=== PATIENT | female | born 1995 | race Caucasian/White ===

== ENCOUNTER → 2021-05-30 | Outpatient (REF) | payer OTHER | LOC: M PLALAB 13:43 | PROVIDERS: ATTEND Advanced Practice Midwife | DX: Z01.419 Encounter for gynecological examination (general) (routine) without abnormal findings (principal); Z12.4 Encounter for screening for malignant neoplasm of cervix ==

== ENCOUNTER → 2021-05-31 | Outpatient (CLI) | payer OTHER | LOC: M WHC 13:59 | PROVIDERS: ATTEND Advanced Practice Midwife | DX: N63.0 Unspecified lump in unspecified breast (principal) ==

== ENCOUNTER 2022-04-02 09:17 | Emergency (ER) | payer OTHER ==
[~2022-04-02] VITALS: Ht 172.7 cm; Wt 66.9 kg
[2022-04-02 10:25] LABS: BASO % 0.9 % (0.0-1.0); EOS # 0.1 10^3/uL (0.0-0.5); EOS % 2.1 % (0.0-3.0); HEMATOCRIT 37.9 % (36.0-47.0); HEMOGLOBIN 12.3 g/dl (12.0-15.5); LYMPH # 1.8 10^3/uL (1.5-5.0); LYMPH % 40.5 % (24.0-44.0); MEAN CORPUSCULAR HEMOGLOBIN 29.4 pg (27.0-33.0); MEAN CORPUSCULAR HGB CONC 32.5 g/dl (32.0-36.5); MEAN CORPUSCULAR VOLUME 90.7 fl (80.0-96.0); MONO # 0.2 10^3/uL (0.0-0.8); MONO % 5.2 % (2.0-8.0); NEUTROPHILS # 2.2 10^3/uL (1.5-8.5); NEUTROPHILS % 51.1 % (36.0-66.0); PLATELET COUNT, AUTOMATED 270 10^3/uL (150-450); RED BLOOD COUNT 4.18 10^6/uL (4.00-5.40); WHITE BLOOD COUNT 4.4 10^3/uL (4.0-10.0)
[2022-04-02 10:48] LABS: HCG, SERUM QUALITATIVE NEGATIVE (NEGATIVE)
[2022-04-02 10:56] LABS: BLOOD UREA NITROGEN 8 MG/DL (9-23); CALCIUM LEVEL 8.9 MG/DL (8.5-10.1); CARBON DIOXIDE LEVEL 28 MMOL/L (20-31); CHLORIDE LEVEL 105 MMOL/L (98-107); CREATININE FOR GFR 0.62 MG/DL (0.55-1.30); GLOMERULAR FILTRATION RATE > 60.0 (>60); GLUCOSE, FASTING 96 MG/DL (60-100); POTASSIUM SERUM 4.1 MMOL/L (3.5-5.1); SODIUM LEVEL 140 MMOL/L (136-145)
[2022-04-02 16:04] VITALS: BP 117/59
== END 2022-04-02 16:14 | disposition home or self-care (01) ==
LOC: M ED 09:17
DX: N92.0 Excessive and frequent menstruation with regular cycle (principal); Z87.448 Personal history of other diseases of urinary system

== ENCOUNTER → 2022-04-14 | Outpatient (CLI) | payer OTHER | LOC: M PLALAB 15:18 | PROVIDERS: ATTEND Advanced Practice Midwife | DX: Z13.79 Encounter for other screening for genetic and chromosomal anomalies (principal); Z80.41 Family history of malignant neoplasm of ovary ==

== ENCOUNTER → 2022-06-24 | Outpatient (CLI) | payer OTHER | LOC: M PLALAB 08:16 | PROVIDERS: ATTEND Advanced Practice Midwife | DX: N93.9 Abnormal uterine and vaginal bleeding, unspecified (principal) ==

== ENCOUNTER → 2022-12-24 | Outpatient (CLI) | payer OTHER | LOC: M PLALAB 12:04 | PROVIDERS: ATTEND Obstetrics & Gynecology | DX: Z32.01 Encounter for pregnancy test, result positive (principal) ==

== ENCOUNTER → 2022-12-26 | Outpatient (CLI) | payer OTHER | LOC: M PLALAB 07:10 | PROVIDERS: ATTEND Obstetrics & Gynecology | DX: Z32.01 Encounter for pregnancy test, result positive (principal) ==

== ENCOUNTER → 2023-01-22 | Outpatient (CLI) | payer OTHER ==
[2023-01-22 18:50] LABS: HEMATOCRIT 36.1 % (36.0-47.0); HEMOGLOBIN 12.2 g/dl (12.0-15.5); MEAN CORPUSCULAR HEMOGLOBIN 30.3 pg (27.0-33.0); MEAN CORPUSCULAR HGB CONC 33.8 g/dl (32.0-36.5); MEAN CORPUSCULAR VOLUME 89.6 fl (80.0-96.0); PLATELET COUNT, AUTOMATED 295 10^3/uL (150-450); RED BLOOD COUNT 4.03 10^6/uL (4.00-5.40); WHITE BLOOD COUNT 5.4 10^3/uL (4.0-10.0)
[2023-01-22 19:53] LABS: HIV 1&2 SCREEN NEGATIVE (NEGATIVE)
[2023-01-22 20:02] LABS: HEPATITIS C VIRUS ABY INDEX 0.08 INDEX (<0.8)
== END ==
LOC: M PLALAB 15:41
PROVIDERS: ATTEND Advanced Practice Midwife
DX: Z36.9 Encounter for antenatal screening, unspecified (principal)

== ENCOUNTER → 2023-02-04 | Outpatient (CLI) | payer OTHER | LOC: M PLALAB 07:12 | PROVIDERS: ATTEND Advanced Practice Midwife | DX: Z34.81 Encounter for supervision of other normal pregnancy, first trimester (principal) ==

== ENCOUNTER → 2023-02-18 | Outpatient (REF) | payer OTHER ==
[2023-02-18 21:42] LABS: GC DNA AMPLIFICATION NEGATIVE (NEGATIVE)
== END ==
LOC: M SFHCWAGY 17:08
PROVIDERS: ATTEND Advanced Practice Midwife
DX: Z34.81 Encounter for supervision of other normal pregnancy, first trimester (principal)
CPT/HCPCS: 87086; 87810; 87850; G0463

== ENCOUNTER → 2023-04-10 | Outpatient (CLI) | payer OTHER | LOC: M WHC 14:30 | PROVIDERS: ATTEND Obstetrics & Gynecology | DX: O28.3 Abnormal ultrasonic finding on antenatal screening of mother (principal); Z3A.19 19 weeks gestation of pregnancy ==

== ENCOUNTER → 2023-05-05 | Outpatient (CLI) | payer OTHER | LOC: M WHC 14:36 | PROVIDERS: ATTEND Advanced Practice Midwife | DX: O43.192 Other malformation of placenta, second trimester (principal); Z3A.23 23 weeks gestation of pregnancy ==

== ENCOUNTER → 2023-05-12 | Outpatient (CLI) | payer OTHER | LOC: M WHC 09:40 | PROVIDERS: ATTEND Advanced Practice Midwife | DX: N63.20 Unspecified lump in the left breast, unspecified quadrant (principal) ==

== ENCOUNTER → 2023-05-26 | Outpatient (CLI) | payer OTHER ==
[2023-05-26 14:30] LABS: HEMOGLOBIN 10.6 g/dl (12.0-15.5); MEAN CORPUSCULAR HEMOGLOBIN 31.2 pg (27.0-33.0); MEAN CORPUSCULAR HGB CONC 33.1 g/dl (32.0-36.5); MEAN CORPUSCULAR VOLUME 94.1 fl (80.0-96.0); PLATELET COUNT, AUTOMATED 261 10^3/uL (150-450); WHITE BLOOD COUNT 6.4 10^3/uL (4.0-10.0)
== END ==
LOC: M PLALAB 08:31
PROVIDERS: ATTEND Specialist
DX: Z34.82 Encounter for supervision of other normal pregnancy, second trimester (principal)

== ENCOUNTER 2023-07-23 18:37 | Outpatient (CLI) | payer OTHER ==
[~2023-07-23] VITALS: Ht 172.7 cm; Wt 76.3 kg
[2023-07-23] MEDS: CYCLOBENZAPRINE 10MG TABLET PO ONE (20:04)
[2023-07-23] MEDS: ACETAMINOPHEN 500 MG TAB PO ONE (20:05)
[2023-07-23 20:06] VITALS: BP 119/58
== END 2023-07-23 21:17 | disposition home or self-care (01) ==
LOC: M LDO 18:37
PROVIDERS: ATTEND Specialist
DX: O36.8130 Decreased fetal movements, third trimester, not applicable or unspecified (principal); O26.893 Other specified pregnancy related conditions, third trimester; O43.193 Other malformation of placenta, third trimester; O09.293 Supervision of pregnancy with other poor reproductive or obstetric history, third trimester; M54.50 Low back pain, unspecified; Z3A.34 34 weeks gestation of pregnancy
CPT/HCPCS: 59025; G0463

== ENCOUNTER 2023-07-27 02:31 | Inpatient (IN) | payer OTHER ==
[~2023-07-27] VITALS: Ht 172.7 cm; Wt 75.8 kg
[2023-07-27] VITALS (8 sets, daily range): BP systolic 114–142; BP diastolic 56–79; O2SAT 98–100
[2023-07-27] MEDS ORDERED: OXYTOCIN INJ 10UNITS/ML 1ML VIAL As Ordered ONE (02:54)
[2023-07-27] MEDS ORDERED: OXYTOCIN 30UNITS IN 0.9% NaCl 500ML IV BAG As Ordered ONE (03:00)
[2023-07-27] MEDS ORDERED: IBUPROFEN 800 MG TAB PO PRN (03:10)
[2023-07-27] MEDS ORDERED: DIBUCAINE 1% OINTMENT 30GM TOP PRN (03:10)
[2023-07-27] MEDS ORDERED: RHOGAM 300MCG (1500IU) INJ IM SCH (03:10)
[2023-07-27] MEDS ORDERED: ACETAMINOPHEN 500 MG TAB PO PRN (03:10)
[2023-07-27] MEDS ORDERED: METHYLERGONOVINE MALEATE 0.2 MG TAB PO PRN (03:10)
[2023-07-27] MEDS ORDERED: IBUPROFEN 600MG TAB PO PRN (03:10)
[2023-07-27] MEDS ORDERED: ACETAMINOPHEN TAB 650MG DOSE (2X325MG) PO PRN (03:10)
[2023-07-27 03:21] LABS: CORD GAS ABE V -1.4; CORD GAS HCO3 V 23.7 MMOL/L; CORD GAS O2 SAT V 34.2 %; CORD GAS PCO2 V 41.2 mmHg; CORD GAS PH V 7.378 UNITS; CORD GAS PO2 V 14.7 mmHg; CORD GAS SBC V 21.7 MMOL/L
[2023-07-27 03:22] LABS: CORD GAS ABE A -3.9; CORD GAS HCO3 A 21.6 MMOL/L; CORD GAS O2 SAT A 39.1 %; CORD GAS PCO2 A 40.6 mmHg; CORD GAS PH A 7.343 UNITS; CORD GAS PO2 A 16.1 mmHg; CORD GAS SBC A 19.9 MMOL/L; CORD GAS TCO2 A 22.8 MMOL/L
[2023-07-27] MEDS: OXYTOCIN DRIP 30 UNITS in IV 1 EA IV SCH (03:39)
[2023-07-27] MEDS ORDERED: PRENTAB9 PO (03:50)
[2023-07-27] MEDS ORDERED: HOME MED LIST COMPLETE! XX SCH (03:50)
[2023-07-27 03:51] LABS: HEMATOCRIT 30.1 % (36.0-47.0); HEMOGLOBIN 10.3 g/dl (12.0-15.5); MEAN CORPUSCULAR HEMOGLOBIN 30.7 pg (27.0-33.0); MEAN CORPUSCULAR HGB CONC 34.2 g/dl (32.0-36.5); MEAN CORPUSCULAR VOLUME 89.6 fl (80.0-96.0); PLATELET COUNT, AUTOMATED 207 10^3/uL (150-450); RED BLOOD COUNT 3.36 10^6/uL (4.00-5.40); WHITE BLOOD COUNT 9.8 10^3/uL (4.0-10.0)
[2023-07-27] MEDS: PRENATAL VITAMINS CHEWABLE TABLET PO SCH (09:00)
[2023-07-28 02:00] VITALS: BP 124/58; O2SAT 98
[2023-07-28 06:00] VITALS: BP 108/59; O2SAT 99
[2023-07-28] MEDS: DOCUSATE SODIUM 100MG CAPSULE PO PRN (07:21)
[2023-07-28 09:58] VITALS: BP 113/72; O2SAT 99
[2023-07-28 18:00] VITALS: BP 125/77; O2SAT 100
[2023-07-29 06:00] VITALS: BP 107/58; O2SAT 98
[2023-07-29 08:30] VITALS: BP 107/58; TEMP 97.8; O2SAT 98
[2023-07-29] MEDS: MEASLES,MUMPS,RUBELLA VACCINE INJ (MMR-II) SC.IMMUN ONE (13:24)
== END 2023-07-29 14:30 | disposition home or self-care (01) | DRG 807 ==
LOC: M LDO 02:31 → M LDI 02:44 → M OBS 04:30
PROVIDERS: ADMIT Obstetrics & Gynecology; ATTEND Obstetrics & Gynecology
PROC: 10E0XZZ Delivery of Products of Conception, External Approach (ICD-10-PCS; principal; 2023-07-27)
PROC: 0HQ9XZZ Repair Perineum Skin, External Approach (ICD-10-PCS; 2023-07-27)
DX: O60.14X0 Preterm labor third trimester with preterm delivery third trimester, not applicable or unspecified (principal); Z37.0 Single live birth; Z3A.35 35 weeks gestation of pregnancy; O70.0 First degree perineal laceration during delivery

== ENCOUNTER → 2024-03-23 | Outpatient (CLI) | payer OTHER ==
[~2024-03-23] MED LIST: PRENTAB9 PO
== END ==
LOC: M WHC 10:35
PROVIDERS: ATTEND Advanced Practice Midwife
DX: N63.32 Unspecified lump in axillary tail of the left breast (principal)

== ENCOUNTER → 2025-03-09 | Outpatient (REF) | payer OTHER ==
[2025-03-11 14:43] LABS: HPV APTIMA Not Detected (Not Detected)
== END ==
LOC: M SFHCWAGY 12:59
PROVIDERS: ATTEND Advanced Practice Midwife
DX: Z12.4 Encounter for screening for malignant neoplasm of cervix (principal)
CPT/HCPCS: 87624; G0123